=== PATIENT | male | born 1975 | race Caucasian/White ===

== ENCOUNTER 2022-06-17 08:24 | Day surgery (SDC) | payer OTHER ==
[~2022-06-17] VITALS: Ht 175.3 cm; Wt 93.1 kg
[2022-06-17 09:04] VITALS: BP 118/79; PULSE 64; TEMP 97.1
[2022-06-17] MEDS ORDERED: PRIL40 PO (09:16)
[2022-06-17] MEDS ORDERED: ZETIA 10MG TAB10 MG PO (09:16)
[2022-06-17] MEDS ORDERED: MICARDIS20 MG PO (09:16)
[2022-06-17] MEDS ORDERED: MULTI VITAMINS1 TAB PO (09:17)
[2022-06-17 10:55] VITALS: BP 120/74; PULSE 64; TEMP 97.1
[2022-06-17 11:10] VITALS: BP 118/80; PULSE 58
[2022-06-17 11:25] VITALS: BP 117/76; PULSE 68
[2022-06-17 11:33] VITALS: BP 120/74; PULSE 67
--- NOTE | 2022-06-17 11:45 | NUR ---
1055 RETURNS TO ROOM 1 PRT CART. AWAKE, ALERT. RESP UNLABORED. AMBULATES TO RECLINER WITH STANDBY ASSIST. DENIES NAUSEA, ABD PAIN OR DYSPHAGIA. VITAL SIGNS OBTAINED. CALL LIGHT AT SIDE. IN ROOM. 1110 TOLERATES PO JUICE AND MUFFIN WITHOUT NAUSEA. SWALLOWS WITHOUT DIFFICULTY. 1120 DISCHARGE INSTRUCTIONS REVIEWED. PATIENT AND VERBALIZE UNDERSTANDING. COPY PROVIDED IN DISCHARGE FOLDER. 1126 DR. LOPES HERE TO VISIT WITH PATIENT 1140 DRESSES SELF
== END 2022-06-17 11:45 | disposition home or self-care (01) ==
LOC: SDCO 08:24
DX: Z12.11 Encounter for screening for malignant neoplasm of colon (principal); K57.30 Diverticulosis of large intestine without perforation or abscess without bleeding; K21.00 Gastro-esophageal reflux disease with esophagitis, without bleeding; K44.9 Diaphragmatic hernia without obstruction or gangrene; K31.7 Polyp of stomach and duodenum; K29.70 Gastritis, unspecified, without bleeding; D12.5 Benign neoplasm of sigmoid colon; K63.5 Polyp of colon; I10 Essential (primary) hypertension
CPT/HCPCS: J2704; J3010; J7120

== ENCOUNTER → 2023-03-21 | Outpatient (CLI) | payer OTHER ==
[~2023-03-21] MED LIST: MICARDIS20 MG PO; MULTI VITAMINS1 TAB PO; PRIL40 PO; ZETIA 10MG TAB10 MG PO
== END ==
LOC: COL.CARD 10:49
DX: R93.89 Abnormal findings on diagnostic imaging of other specified body structures (principal)

== ENCOUNTER → 2023-03-23 | Outpatient (CLI) | payer OTHER | LOC: COL.RAD 07:41 | DX: R93.89 Abnormal findings on diagnostic imaging of other specified body structures (principal) ==

== ENCOUNTER → 2023-03-27 | Outpatient (CLI) | payer OTHER ==
[~2023-03-27] MED LIST changes: +Albuterol 0.083% Neb Soln 2.5 MG/3 ML UD IH ONE; +Methacholine Vial A (Clear Label Base-Cntrl) IH ONE; +Methacholine Vial B (Red Label) 0.0625 MG/ML 3 ML VIAL.NEB IH ONE; +Methacholine Vial C (Orange Label) 0.25 MG/ML 3 ML VIAL.NEB IH ONE; +Methacholine Vial D (Yellow Label) 1 MG/ML 3 ML VIAL.NEB IH ONE; +Methacholine Vial E (Green Label) 4 MG/ML 3 ML VIAL.NEB IH ONE; +Methacholine Vial F (Blue Label) 16 MG/ML 3 ML VIAL.NEB IH ONE
== END ==
LOC: COL.CARD 07:54
DX: R06.02 Shortness of breath (principal)
CPT/HCPCS: J7674